=== PATIENT | female | born 1975 | race Caucasian/White ===

== ENCOUNTER → 2020-08-27 | Outpatient (CLI) | payer OTHER ==
--- NOTE | 2020-08-27 17:36 | RAD ---
Examination: 1. Bilateral digital diagnostic mammogram. 2. Limited left breast ultrasound. INDICATION: 44-year-old woman due for mammographic screening presents with a palpable area of concern in the inferior left breast. COMPARISON: No relevant comparisons currently available. This will serve as a baseline. TECHNIQUE: Bilateral CC and MLO views were obtained. Targeted ultrasound of the left breast was then performed. Mammographic images reviewed with computer-aided detection. FINDINGS: Extremely dense breast parenchyma. No dominant mass, suspicious calcification or architectural distortion in either breast. No mammographic correlate to the area of patient's reported palpable concern in the anterior inferior left breast as marked with a BB marker at the skin surface. Targeted ultrasound of the left breast shows dense fibrous tissue with no suspicious sonographic find ings and no definite sonographic correlate to the area of palpable concern as reported by the patient . Sonographic survey of the left axilla reveals no adenopathy. IMPRESSION: Negative bilateral mammogram and targeted left breast ultrasound. No evidence of malignancy. BI-RADS Category 1 Negative Recommend clinical management of the area of palpable concern including biopsy of any clinically susp icious findings if present. In the absence of a clinically suspicious finding, recommend routine scre ening next due in one year. Patient entered into a reminder system with targeted due date for next mammogram. Electronically signed by: Madan Rizvi MD (08/27/2020 5:34 PM) [id number]
== END ==
LOC: MAMMO 14:06
PROVIDERS: ATTEND Nurse Practitioner Family
DX: N63.20 Unspecified lump in the left breast, unspecified quadrant (principal); R92.2 Inconclusive mammogram
CPT/HCPCS: 76641; 77066

== ENCOUNTER 2020-08-31 15:51 | Emergency (ER) | payer SELFPAY ==
[~2020-08-31] VITALS: Ht 162.6 cm; Wt 42.3 kg
--- NOTE | 2020-08-31 16:13 | PHYS DOC ---
Adult General HPI HPI Patient is a 44F seen in the emergency department with new onset of back pain. Patient states that 4 days ago she started developing sensation of swelling in the left upper back. Patient states this is similar to prior episodes of urinary tract infection She states that she slipped and fell in the bathtub struck her back as well. States this has been slowly increasing in severity since that time. However today she had subjective fever at home. Denies any dysuria, pyuria, vaginal bleeding, nausea vomiting or diarrhea. Denies any dizziness or lightheadedness (ALBA MAHONEY MD) Review of Systems Review of Systems Constitutional: Denies fever or chills [] Eyes: Denies change in visual acuity, redness, or eye pain [] HENT: Denies nasal congestion or sore throat [] Respiratory: Denies cough or shortness of breath [] Cardiovascular: No additional information not addressed in HPI [] GI: Denies abdominal pain, nausea, vomiting, bloody stools or diarrhea [] : Denies dysuria or hematuria [] Musculoskeletal: Denies back pain or joint pain [] Integument: Denies rash or skin lesions [] Neurologic: Denies headache, focal weakness or sensory changes [] Endocrine: Denies polyuria or polydipsia [] All other systems were reviewed and found to be within normal limits, except as documented in this note. (ALBA MAHONEY MD) Physical Exam Physical Exam Constitutional: Well developed, well nourished, no acute distress, non-toxic appearance. [] HENT: Normocephalic, atraumatic, bilateral external ears normal, oropharynx moist, no oral exudates, nose normal. [] Eyes: PERRLA, EOMI, conjunctiva normal, no discharge. [] Neck: Normal range of motion, no tenderness, supple, no stridor. [] Cardiovascular:Heart rate regular rhythm, no murmur [] Lungs & Thorax: Bilateral breath sounds clear to auscultation [] Abdomen: Bowel sounds normal, soft, no tenderness, no masses, no pulsatile masses. [] Skin: Warm, dry, no erythema, no rash. [] Back: No tenderness, no CVA tenderness. [] Extremities: No tenderness, no cyanosis, no clubbing, ROM intact, no edema. [] Neurologic: Alert and oriented X 3, normal motor function, normal sensory function, no focal deficits noted. [] Psychologic: Affect normal, judgement normal, mood normal. [] (ALBA MAHONEY MD) EKG EKG [] (ALBA MAHONEY MD) Radiology/Procedures Radiology/Procedures [] (ALBA MAHONEY MD) Heart Score Risk Factors: Risk Factors: DM, Current or recent (<one month) smoker, HTN, HLP, family history of CAD, obesity. Risk Scores: Risk Factors: DM, Current or recent (<one month) smoker, HTN, HLP, family history of CAD, obesity. (ALBA MAHONEY MD) Course & Med Decision Making Course & Med Decision Making Pertinent Labs and Imaging studies reviewed. (See chart for details) 44-year-old female now with acute onset of left-sided flank and back pain as well as history of urinary tract infections. Will obtain urinalysis to determine if any further work-up as this 17:13 -urinalysis does demonstrate blood and leukoesterase with no nitrates. This does raise concern for an infected or infected renal stone. At this time will obtain further labs and a CT scan of the abdomen without contrast (ALBA MAHONEY MD) Course & Med Decision Making See Dr. Mahoney chart for details. Impression: 1. UTi 2. lT. lower pneumonia 3. Leukocytosis 11.4 Patient to push fluids. Tylenol or ibuprofen as needed for pain fever or discomfort. No obstructing stone noted on CT but did have findings of a left lower lobe pneumonia. Patient follow-up pending Covid test. Patient take Keflex 500 mg 3 times a day. Take Zithromax 250 mg a day. Patient after completing the antibiotics to take Diflucan 100 mg daily for 3 days. Follow-up with primary care. Follow-up cultures. Follow-up Covid test. Return if any concerns. (DEYA GIL MD) Dragon Disclaimer Dragon Disclaimer This electronic medical record was generated, in whole or in part, using a voice recognition dictation system. (ALBA MAHONEY MD) Departure Departure: Referrals: LEFTY GANDARA (PCP) Scripts Fluconazole (DIFLUCAN) 100 Mg Tablet 100 MG PO DAILY for post antibiotics, #3 TAB Prov: DEYA GIL MD 08/31/20 Cephalexin (KEFLEX) 500 Mg Capsule 500 MG PO TID for pneumonia and uti for 7 Days, BOTTLE Prov: DEYA GIL MD 08/31/20 Azithromycin (ZITHROMAX) 250 Mg Tablet 250 MG PO DAILY for ANTI-BIOTIC for 5 Days, #5 TAB 0 Refills Prov: DEYA GIL MD 08/31/20 Dragon Disclaimer This chart was dictated in whole or in part using Voice Recognition software in a busy, high-work load, and often noisy Emergency Department environment. It may contain unintended and wholly unrecognized errors or omissions. (DEYA GIL MD) ALBA MAHONEY MD Aug 31, 2020 16:13 DEYA GIL MD Aug 31, 2020 19:35
[2020-08-31 16:53] LABS: BILIRUBIN,URINE NEG (NEG); CLARITY,URINE HAZY; COLOR,URINE COLORLESS; GLUCOSE,URINE NEG (NEG)
[2020-08-31 16:54] LABS: BACTERIA,URINE MANY /HPF (0-FEW); NITRITE,URINE NEG (NEG); RBC,URINE >40 /HPF (0-2); UROBILINOGEN,URINE 0.2 mg/dL (0.2 mg/dL); WBC,URINE >40 /HPF (0-4)
[2020-08-31] MEDS ORDERED: MORPHINE SULFATE 4 MG/ML DISP.SYRIN. IM ONE (17:15)
[2020-08-31 17:49] LABS: CALCIUM 8.6 mg/dL (8.5-10.1); CREATININE 0.9 mg/dL (0.6-1.0); GFR 67.7; POTASSIUM 3.8 mmol/L (3.5-5.1)
--- NOTE | 2020-08-31 17:52 | RAD ---
Exam: CT of abdomen and pelvis without contrast INDICATION: Left flank pain TECHNIQUE: Sequential axial images through the abdomen and pelvis obtained without IV contrast. Sagit vargas and coronal reformatted images were reconstructed from the axial data and reviewed. Comparisons: None FINDINGS: Heart size is normal. No pericardial effusion. There is patchy groundglass opacity at the left lower lobe. No pleural effusion Evaluation of solid organs limited secondary to noncontrast technique. Liver, spleen, pancreas, gallbladder and adrenals are unremarkable. Several nonobstructing right renal calculi are noted. No ureteral calculi are seen. Bladder is distended and appears thin-walled. Uterus is not enlarged. No abnormal adnexal mass. Large and small bowel are unremarkable. Appendix is not identified. No free abdominal air or fluid. N o obstruction. Abdominal aorta has a normal course and caliber. No enlarged intra-abdominal lymph nodes are identified. No suspicious osseous lesions or acute fractures. IMPRESSION: 1. No ureteral calculi or evidence for obstructive uropathy. Several nonobstructing right renal calc julianne. 2. Patchy ground glass opacity at the left lower lobe favored to be infectious or inflammatory in et iology. Exposure: One or more of the following in the visualized dose reduction techniques were utilized for this examination: 1. Automated exposure control 2. Adjustment of the MA and/or KV according to patient size 3. Use of iterative of reconstructive technique Electronically signed by: Ravi Adames MD (08/31/2020 5:49 PM) [facility]
[2020-08-31 17:55] LABS: ALBUMIN 2.9 g/dL (3.4-5.0); ALBUMIN/GLOBULIN RATIO 0.7 (1.0-1.7); TOTAL BILIRUBIN 0.1 mg/dL (0.2-1.0); TOTAL PROTEIN 6.9 g/dL (6.4-8.2)
[2020-08-31 18:17] LABS: PREG TEST PT QUAL NEGATIVE (NEG)
[2020-08-31 18:38] LABS: BASO # 0.1 x10^3/uL (0.0-0.2); BASO % 1 % (0-3); EOS # 0.1 x10^3/uL (0.0-0.7); EOS % 1 % (0-3); HEMATOCRIT 38.6 % (36.0-47.0); HEMOGLOBIN 12.5 g/dL (12.0-15.5); LYMPH # 1.3 x10^3/uL (1.0-4.8); LYMPH % 12 % (24-48); MEAN CORPUSCULAR HEMOGLOBIN 28 pg (25-35); MEAN CORPUSCULAR HGB CONC 32 g/dL (31-37); MEAN CORPUSCULAR VOLUME 87 fL (79-100); MONO % 9 % (0-9); NEUT # 8.8 x10^3uL (1.8-7.7); NEUT % 77 % (31-73); PLATELET COUNT 423 x10^3/uL (140-400); RED BLOOD COUNT 4.45 x10^6/uL (3.50-5.40); RED CELL DISTRIBUTION WIDTH 14.2 % (11.5-14.5); WHITE BLOOD COUNT 11.4 x10^3/uL (4.0-11.0)
[2020-08-31] MEDS ORDERED: IV NORMAL SALINE 50ML 50 ML ONE (19:21)
[2020-08-31] MEDS ORDERED: cefTRIAXone SODIUM 1 GM VIAL ONE (19:21)
[2020-08-31 19:25] VITALS: BP 127/83
[2020-08-31] MEDS ORDERED: CEPH-264 PO (19:27)
[2020-08-31] MEDS ORDERED: AZIT250T PO (19:27)
[2020-08-31] MEDS ORDERED: FLUC100T7 PO (19:27)
[2020-08-31] MEDS ORDERED: AZITHROMYCIN 250 MG TABLET. PO ONE (19:30)
== END 2020-08-31 20:32 | disposition home or self-care (01) ==
LOC: ER 15:51
DX: N39.0 Urinary tract infection, site not specified (principal); J18.1 Lobar pneumonia, unspecified organism; D72.829 Elevated white blood cell count, unspecified; Z87.440 Personal history of urinary (tract) infections; W18.2XXA Fall in (into) shower or empty bathtub, initial encounter; Y93.89 Activity, other specified; Y92.89 Other specified places as the place of occurrence of the external cause; Y99.8 Other external cause status
CPT/HCPCS: 36415; 74176; 80053; 81001; 84703; 85025; 96365; 96372; 99284; J0696; J2270

== ENCOUNTER 2020-11-04 20:14 | Emergency (ER) | payer SELFPAY ==
[~2020-11-04] VITALS: Ht 162.6 cm; Wt 42.3 kg
[~2020-11-04 20:14] MED LIST: AZIT250T PO; CEPH-264 PO; FLUC100T7 PO
[2020-11-04 20:25] VITALS: BP 146/102
--- NOTE | 2020-11-04 20:58 | PHYS DOC ---
Past History Past Medical History: No Pertinent History Past Surgical History: Alcohol Use: None Adult General Chief Complaint Chief Complaint: LACERATION/AVULSION HPI HPI Patient is a 45-year-old female who presents with finger laceration. States she was cleaning out her truck, reached down in between the seats and cut her finger on a straight razor. States she is up-to-date on her tetanus vaccination. Denies any other injuries. Review of Systems Review of Systems Review of systems otherwise unremarkable except noted in HPI Current Medications Current Medications Current Medications Medications (Trade) Dose Ordered Sig/Pam Start Time Stop Time Status Last Admin Dose Admin Lidocaine/ Epinephrine (Let (Ostb-Aubechr-Dspsb) Gel) 6 ml 1X ONCE 11/04/20 21:30 11/04/20 21:31 Allergies Allergies Allergies Coded Allergies Type Severity Reaction Last Updated Verified Sulfa (Sulfonamide Antibiotics) Allergy Intermediate 08/31/20 Yes Physical Exam Physical Exam Constitutional: Well developed, well nourished, no acute distress, non-toxic appearance. [] Skin: Patient has a superficial laceration on the medial aspect of the fifth distal digit distal to the DIP. Bleeding controlled. Neurovascular exam intact. Musculoskeletal exam intact. Back: No tenderness, no CVA tenderness. [] Extremities: No tenderness, no cyanosis, no clubbing, ROM intact, no edema. [] Neurologic: Alert and oriented X 3, normal motor function, normal sensory function, no focal deficits noted. [] Psychologic: Affect normal, judgement normal, mood normal. [] Current Patient Data Vital Signs Vital Signs Date Time Temp Pulse Resp B/P (MAP) Pulse Ox O2 Delivery O2 Flow Rate FiO2 11/04/20 20:25 98.0 110 16 146/102 (117) 100 Room Air EKG EKG [] Radiology/Procedures Radiology/Procedures [] Heart Score Risk Factors: Risk Factors: DM, Current or recent (<one month) smoker, HTN, HLP, family history of CAD, obesity. Risk Scores: Risk Factors: DM, Current or recent (<one month) smoker, HTN, HLP, family history of CAD, obesity. Course & Med Decision Making Course & Med Decision Making Patient is a 45-year-old female who presents with finger laceration Vital signs not concerning. Physical exam noted above. LET placed for anesthesia and hemostasis. No need for suture repair. Dermabond repair and bandaged. Gave wound care instructions. Advised to follow-up with primary care as needed. Gave return precautions to the ED. Patient grateful, verbalized understanding and agreed with plan of discharge. [] Dragon Disclaimer Dragon Disclaimer This electronic medical record was generated, in whole or in part, using a voice recognition dictation system. Departure Departure: Impression: Primary Impression: Finger laceration Disposition: 01 DC HOME SELF CARE/HOMELESS Condition: GOOD Referrals: LEFTY GANDARA (PCP) Patient Instructions: Fingertip Laceration Additional Instructions: Please read the attached information. Please take your antibiotics as prescribed. Use Tylenol, ibuprofen and ice as needed for pain control. You are given a work note for tomorrow. Please follow-up with your primary care as needed. Please return to the ED with new or concerning symptoms as discussed. Scripts Cephalexin (CEPHALEXIN) 500 Mg Capsule 1 CAP PO TID for laceration for 3 Days, #9 CAP Prov: BÁRBARA JERONIMO MD 11/04/20 BÁRBARA JERONIMO MD Nov 04, 2020 20:58
[2020-11-04] MEDS ORDERED: CEPH500C PO (21:28)
[2020-11-04] MEDS ORDERED: LIDOCAINE/EPI/TETRACAINE TOPICAL GEL 3 ML. TP ONE (21:30)
== END 2020-11-04 21:40 | disposition home or self-care (01) ==
LOC: ER 20:14
DX: S61.216A Laceration without foreign body of right little finger without damage to nail, initial encounter (principal); Z88.2 Allergy status to sulfonamides; Z98.890 Other specified postprocedural states; W26.8XXA Contact with other sharp object(s), not elsewhere classified, initial encounter; Y93.89 Activity, other specified; Y92.89 Other specified places as the place of occurrence of the external cause; Y99.8 Other external cause status
CPT/HCPCS: 12001; 99283

== ENCOUNTER 2020-12-18 11:03 | Emergency (ER) | payer SELFPAY ==
[~2020-12-18] VITALS: Ht 162.6 cm; Wt 51.8 kg
[~2020-12-18 11:03] MED LIST changes: +CEPH500C PO
[2020-12-18] MEDS ORDERED: ONDANSETRON ODT 4 MG TAB.RAPDIS PO ONE (11:30)
[2020-12-18] MEDS ORDERED: AMOXICILLIN/K CLAV 875/125MG TABLET. PO ONE (11:30)
[2020-12-18] MEDS ORDERED: DEXAMETHASONE 4 MG TABLET PO ONE (11:30)
[2020-12-18] MEDS ORDERED: ONDA4TAB12 PO (11:31)
[2020-12-18] MEDS ORDERED: NEOM10DR32 RIGHT EAR (11:31)
[2020-12-18] MEDS ORDERED: AMOX1TAB61 PO (11:31)
--- NOTE | 2020-12-18 11:31 | PHYS DOC ---
Past History Past Medical History: No Pertinent History Past Surgical History: Alcohol Use: None General Adult EDM: Chief Complaint: EARACHE/EAR PAIN HPI: HPI: Patient is a [age] year old [sex] who presents with [] Review of Systems: Review of Systems: Constitutional: Denies fever or chills Eyes: Denies change in visual acuity HENT: Denies nasal congestion or sore throat Respiratory: Denies cough or shortness of breath Cardiovascular: Denies chest pain or edema GI: Denies abdominal pain, nausea, vomiting, bloody stools or diarrhea : Denies dysuria Musculoskeletal: Denies back pain or joint pain Integument: Denies rash Neurologic: Denies headache, focal weakness or sensory changes Endocrine: Denies polyuria or polydipsia Lymphatic: Denies swollen glands Psychiatric: Denies depression or anxiety Current Medications: Current Meds: Current Medications Medications (Trade) Dose Ordered Sig/Pam Start Time Stop Time Status Last Admin Dose Admin Amoxicillin/ Clavulanate Potassium (Augmentin 875/ 125mg) 1 tab 1X ONCE 12/18/20 11:30 12/18/20 11:31 UNV Dexamethasone (Decadron) 10 mg 1X ONCE 12/18/20 11:30 12/18/20 11:31 Ondansetron HCl (Zofran Odt) 4 mg 1X ONCE 12/18/20 11:30 12/18/20 11:31 Allergies: Allergies: Allergies Coded Allergies Type Severity Reaction Last Updated Verified Sulfa (Sulfonamide Antibiotics) Allergy Intermediate 08/31/20 Yes Physical Exam: PE: Constitutional: Well developed, well nourished, no acute distress, non-toxic appearance. [] HENT: Normocephalic, atraumatic, bilateral external ears normal, oropharynx moist, no oral exudates, nose normal. [] Eyes: PERRLA, EOMI, conjunctiva normal, no discharge. [] Neck: Normal range of motion, no tenderness, supple, no stridor. [] Cardiovascular:Heart rate regular rhythm, no murmur [] Lungs & Thorax: Bilateral breath sounds clear to auscultation [] Abdomen: Bowel sounds normal, soft, no tenderness, no masses, no pulsatile masses. [] Skin: Warm, dry, no erythema, no rash. [] Back: No tenderness, no CVA tenderness. [] Extremities: No tenderness, no cyanosis, no clubbing, ROM intact, no edema. [] Neurologic: Alert and oriented X 3, normal motor function, normal sensory function, no focal deficits noted. [] Psychologic: Affect normal, judgement normal, mood normal. [] EKG: EKG: [] Radiology/Procedures: Radiology/Procedures: [] Heart Score: Risk Factors: Risk Factors: DM, Current or recent (<one month) smoker, HTN, HLP, family history of CAD, obesity. Risk Scores: Score 0 - 3: 2.5% MACE over next 6 weeks - Discharge Home Score 4 - 6: 20.3% MACE over next 6 weeks - Admit for Clinical Observation Score 7 - 10: 72.7% MACE over next 6 weeks - Early Invasive Strategies Course & Med Decision Making: Course & Med Decision Making Pertinent Labs and Imaging studies reviewed. (See chart for details) [] Dragon Disclaimer: Dragon Disclaimer: This electronic medical record was generated, in whole or in part, using a voice recognition dictation system. Departure Departure: Impression: Primary Impression: Otitis externa Qualified Codes: H60.501 - Unspecified acute noninfective otitis externa, right ear Additional Impression: Nausea Disposition: HOME / SELF CARE / HOMELESS Condition: STABLE Referrals: LEFTY GANDARA (PCP) Patient Instructions: Nausea, Adult, [id number]-[id number], Otitis Externa, Oekb-[id number] Scripts Neomycin/Polymyxin B Sulf/Hc ([id number]-RB EAR SUSP) 10 Ml Drops.susp 4 DROP RIGHT EAR TID for Otitis externa for 7 Days, #10 ML Prov: CRISELDA TURNER DO 12/18/20 Amoxicillin/Potassium Clav (AUGMENTIN 875-125 TABLET) 1 Each Tablet 1 TAB PO BID for Ear infection for 7 Days, #14 TAB 0 Refills Prov: CRISELDA TURNER DO 12/18/20 Ondansetron (ONDANSETRON ODT) 4 Mg Tab.rapdis 1 TAB PO PRN Q6-8HRS PRN for NAUSEA, #16 TAB Prov: CRISELDA TURNER DO 12/18/20 CRISELDA TURNER DO Dec 18, 2020 11:31
[2020-12-18 11:35] VITALS: BP 114/76
== END 2020-12-18 11:39 | disposition home or self-care (01) ==
LOC: ER 11:03
DX: H60.501 Unspecified acute noninfective otitis externa, right ear (principal); R11.0 Nausea; Z88.2 Allergy status to sulfonamides
CPT/HCPCS: 99284; J8540; Q0162

== ENCOUNTER 2021-12-19 08:54 | Emergency (ER) | payer SELFPAY ==
[~2021-12-19] VITALS: Ht 162.6 cm; Wt 51.8 kg
[~2021-12-19 08:54] MED LIST changes: +AMOX1TAB61 PO; +NEOM10DR32 RIGHT EAR; +ONDA4TAB12 PO
[2021-12-19 09:00] VITALS: BP 125/80
--- NOTE | 2021-12-19 09:41 | PHYS DOC ---
Past History Past Medical History: TB Past Surgical History: , Other Additional Past Surgical Histo: RIGHT LUNG, RIGHT HAND Alcohol Use: None General Adult EDM: Chief Complaint: PAIN ON URINATION HPI: HPI: Patient is a 46-year-old female coming in for a couple of days of dysuria, and frequency. Denies any vaginal bleeding or discharge. Denies any hematuria. Has lower abdominal pain, no flank pain. States she had chills and took her temperature and was normal. History of UTIs, last one about 6 months ago Review of Systems: Review of Systems: All other systems within normal limits except for as noted in the HPI Allergies: Allergies: Allergies Coded Allergies Type Severity Reaction Last Updated Verified Sulfa (Sulfonamide Antibiotics) Allergy Intermediate 08/31/20 Yes Physical Exam: PE: Constitutional: Well developed, well nourished, no acute distress, non-toxic appearance. [] HENT: Normocephalic, atraumatic, bilateral external ears normal, nose normal. [] Eyes: PERRLA, conjunctiva normal, no discharge. [] Neck: No rigidity, supple, no stridor. [] Cardiovascular: Regular rate and rhythm, brisk cap refill [] Lungs & Thorax: Non labored symmetric respirations, no tachypnea or respiratory distress [] Abdomen: Soft, nondistended. Skin: Warm, dry, no erythema, no rash. [] Back: Unremarkable Extremities: No deformities, range of motion grossly intact, no lower extremity edema [] Neurologic: Alert and oriented X 3, no focal deficits noted. [] Psychologic: Affect normal, judgement normal, mood normal. [] EKG: EKG: [] Radiology/Procedures: Radiology/Procedures: [] Heart Score: C/O Chest Pain: No Risk Factors: Risk Factors: DM, Current or recent (<one month) smoker, HTN, HLP, family history of CAD, obesity. Risk Scores: Score 0 - 3: 2.5% MACE over next 6 weeks - Discharge Home Score 4 - 6: 20.3% MACE over next 6 weeks - Admit for Clinical Observation Score 7 - 10: 72.7% MACE over next 6 weeks - Early Invasive Strategies Course & Med Decision Making: Course & Med Decision Making Pertinent Labs and Imaging studies reviewed. (See chart for details) [] Dragon Disclaimer: Dragon Disclaimer: This electronic medical record was generated, in whole or in part, using a voice recognition dictation system. Departure Departure: Impression: Primary Impression: UTI (urinary tract infection) Disposition: HOME / SELF CARE / HOMELESS Condition: STABLE Referrals: LEFTY GANDARA (PCP) Patient Instructions: Urinary Tract Infection Scripts Phenazopyridine Hcl (PYRIDIUM) 200 Mg Tablet 1 TAB PO TID for urinary discomfort for 2 Days, #6 TAB 0 Refills Prov: JAD ROBERTS MD 12/19/21 Cephalexin (CEPHALEXIN) 500 Mg Tablet 1 TAB PO BID for antibiotic for 7 Days, #14 TAB Prov: JAD ROBERTS MD 12/19/21 JAD ROBERTS MD Dec 19, 2021 09:41
[2021-12-19 10:03] LABS: CLARITY,URINE TURBID; COLOR,URINE YELLOW; GLUCOSE,URINE NEG (NEG); NITRITE,URINE POS (NEG); WBC,URINE TNTC /HPF (0-4)
[2021-12-19 10:04] LABS: BACTERIA,URINE MANY /HPF (0-FEW); SQUAMOUS EPITHELIAL CELL,UR FEW /LPF
[2021-12-19] MEDS ORDERED: CEPH500T PO (10:09)
[2021-12-19] MEDS ORDERED: PHEN-318 PO (10:09)
== END 2021-12-19 10:13 | disposition home or self-care (01) ==
LOC: ER 08:54
DX: N39.0 Urinary tract infection, site not specified (principal); Z98.890 Other specified postprocedural states; Z88.2 Allergy status to sulfonamides
CPT/HCPCS: 81001; 87077; 87086; 87186; 99283

== ENCOUNTER 2022-01-17 23:36 | Emergency (ER) | payer SELFPAY ==
[~2022-01-17] VITALS: Ht 162.6 cm; Wt 51.8 kg
[~2022-01-17 23:36] MED LIST changes: +CEPH500T PO; +PHEN-318 PO
[2022-01-17 23:40] VITALS: BP 124/90
--- NOTE | 2022-01-18 01:07 | RAD ---
XR KNEE _4 VIEWS WITH PATELLA_LT 01/18/2022 12:48 AM INDICATION: Injury COMPARISON: None available. TECHNIQUE: 4 views of the left knee. FINDINGS/ IMPRESSION: Small to moderate knee joint effusion. There is no acute fracture or dislocation. Mild widening of th e medial patellofemoral joint space and narrowing of the lateral patellofemoral joint space. Correlat e with any subluxation laterally. Bone mineralization is within normal limits. Medial soft tissue swe lling. There is no soft tissue gas or osseous erosion. No radiopaque foreign body. Electronically signed by: Sagrario Crawford MD (01/18/2022 1:04 AM) CON[facility]IE
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
== END 2022-01-18 03:35 | disposition home or self-care (01) ==
LOC: ER 23:36
DX: S86.912A Strain of unspecified muscle(s) and tendon(s) at lower leg level, left leg, initial encounter (principal); Z98.51 Tubal ligation status; Z98.890 Other specified postprocedural states; Y04.8XXA Assault by other bodily force, initial encounter; Y93.89 Activity, other specified; Y92.89 Other specified places as the place of occurrence of the external cause; Y99.8 Other external cause status
CPT/HCPCS: 29505; 73564; 99283